=== PATIENT | female | born 1995 | race Caucasian/White ===

== ENCOUNTER 2016-12-20 23:39 | Emergency (ER) | payer OTHER ==
[~2016-12-20] VITALS: Ht 157.5 cm; Wt 66.5 kg
[~2016-12-20 23:39] MED LIST: FAMO-18 PO; HYDR-3498 PO; HYDR15SO8 PO; LANS15TA5 PO; LORA1TAB PO; METO10TA92 PO; ONDA4TAB35 PO; OXYC-284 PO; UDREG PO; UDTYLC PO; ZOF8 PO
[2016-12-20 23:42] VITALS: Ht 157.5 cm; Wt 66.5 kg
[2016-12-21 00:06] LABS: URINE BLOOD (Dip) POC Negative (NEGATIVE)
[2016-12-21] MEDS ORDERED: SOD CHLORIDE 0.9% 1,000 ML IV STA (00:09)
[2016-12-21] MEDS ORDERED: morphine 2 MG INJ IV STA (00:09)
[2016-12-21] MEDS ORDERED: ONDANSETRON 4 MG INJ IV STA ×3 (00:24→02:23)
[2016-12-21 00:31] LABS: ADD SCAN DIFF NO
[2016-12-21 00:34] LABS: BASOPHILS % 0.3 % (0.0-2.0); EOSINOPHILS % 0.2 % (0.0-7.0); HEMATOCRIT 46.4 % (37.0-47.0); HEMOGLOBIN 15.9 g/dl (12.0-16.0); LYMPHOCYTES # 2.7 10^3/ul (0.8-2.9); LYMPHOCYTES % 27.1 % (18.0-55.0); MEAN CORPUSCULAR HGB CONC 34.3 g/dl (32.0-37.0); MEAN CORPUSCULAR VOLUME 90.4 fl (72.0-104.0); MEAN PLATELET VOLUME 10.9 fl (7.4-10.4); MONOCYTE # 0.6 10^3/ul (0.3-0.9); MONOCYTES % 5.8 % (0.0-13.0); NEUTROPHIL # 6.6 10^3/ul (1.6-7.5); NEUTROPHILS % 66.3 % (30.0-74.0); PLATELET COUNT 238 10^3/UL (140-415); RED BLOOD COUNT 5.13 10^6/ul (4.20-5.40); RED CELL DISTRIBUTION WIDTH 14.1 % (11.5-14.5); WHITE BLOOD COUNT 9.9 10^3/ul (4.8-10.8)
[2016-12-21 01:06] LABS: ADD UMIC NO; URINE BILIRUBIN (Dip) 1+ (NEGATIVE); URINE BLOOD (Dip) NEGATIVE (NEGATIVE); URINE COLOR YELLOW (YELLOW); URINE GLUCOSE (Dip) NEGATIVE (NEGATIVE); URINE KETONES (Dip) 3+ (NEGATIVE); URINE LEUKOCYTE ESTERASE (Dip) NEGATIVE (NEGATIVE); URINE NITRITE (Dip) NEGATIVE (NEGATIVE); URINE TOTAL PROTEIN (Dip) NEGATIVE (NEGATIVE); URINE UROBILINOGEN (Dip) 0.2 E.U./dL (0.1-1.0)
[2016-12-21 01:08] LABS: ALBUMIN 4.2 g/dl (3.3-4.9); ALBUMIN/GLOBULIN RATIO 1.23; BILIRUBIN,INDIRECT 0.3 mg/dl (0-1.1); BILIRUBIN,TOTAL 0.3 mg/dl (0.2-1.3); CALCIUM 9.6 mg/dl (8.4-10.2); CREATININE 0.59 mg/dl (0.44-1.00); POTASSIUM 3.7 mmol/L (3.5-5.1); TOTAL PROTEIN 7.6 g/dl (6.1-8.1)
[2016-12-21 01:17] LABS: ICTOTEST NEGATIVE (NEGATIVE)
--- NOTE | 2016-12-21 02:05 | ERA ---
ER Documentation Chief Complaint Date/Time DATE: 12/21/16 TIME: 02:02 Chief Complaint epigastric pain x 1 day HPI 25-year-old female presented with epigastric pain and history of hiatal hernia surgical repair in 2014. Patient states that the current pain feels similar to the pain pre-surgical repair of hiatal hernia. Patient has been able to tolerate p.o. however has had less appetite. Patient also was of nausea without vomiting or diarrhea. Patient has no other complaints at this time. ROS All systems reviewed and are negative except as per history of present illness. Medications Home Meds Active Scripts Polyethylene Glycol* (Miralax*) 17 Gm Powd.pack, 17 GM PO DAILY, #7 Prov:GARTH STAPLETON PA-C 12/21/16 Metoclopramide* (Reglan*) 10 Mg Tablet, 10 MG PO Q6 Y for NAUSEA AND/OR VOMITING , #30 TAB Prov:RADHA PATEL 11/08/15 Metoclopramide* (Reglan*) 10 Mg Tablet, 10 MG PO Q6 Y for NAUSEA AND/OR VOMITING , #10 TAB Prov:RADHA PATEL 10/19/15 Famotidine* (Pepcid*) 20 Mg Tablet, 20 MG PO BID for 15 Days, TAB Prov:RADHA PATEL 10/19/15 Ondansetron Hcl* (Zofran* ODT) 4 mg -ODT Tab.disper, 4 MG PO Q8 Y for NAUSEA AND OR VOMITING, #30 TAB Prov:BERTRAND MAY PROSTHETIC ASSISTANT 10/17/15 Oxycodone Hcl-Acetaminophen* (Percocet*) 10-325 Mg Tablet, 1 TAB PO Q4H Y for PAIN AND OR ELEVATED TEMP, #20 TAB Prov:BERTRAND MAY PROSTHETIC ASSISTANT 10/17/15 Hydrocodone Bit-Acetaminophen* ([place]*) 5-325 Mg Tab, 1 TAB PO Q6 Y for PAIN, # 7 TAB Prov:CORA MÁRQUEZ DO 10/07/15 Ondansetron Hcl* (Zofran* ODT) 4 mg -ODT Tab.disper, 4 MG PO Q6 Y for NAUSEA AND /OR VOMITING, #10 TAB Prov:CORA MÁRQUEZ DO 10/07/15 Lorazepam* (Lorazepam*) 1 Mg Tablet, 1 MG PO Q6, #12 TAB Prov:VALORIE REDMOND MD 06/23/15 Ondansetron Hcl* (Zofran* ODT) 8 mg -ODT Tab.disper, 8 MG PO Q6 Y for NAUSEA AND /OR VOMITING, #12 TAB Prov:VALORIE REDMOND MD 06/23/15 Lansoprazole* (Prevacid* Soltab) 15 Mg Tab, 15 MG PO DAILY for 28 Days, TAB Prov:YOHAN NEGRON MD 06/02/15 Metoclopramide Hcl* (Metoclopramide Hcl* Soln) 5 Mg/5 Ml Solution, 5 MG PO Q6H Y for NAUSEA AND OR VOMITING for 10 Days, ML Prov:YOHAN NEGRON MD 06/02/15 Hydrocodone Bit-Acetaminophen* (Lortab* Liq) 7.5 Mg-500 Mg/15 Ml Solution, 5 ML PO Q4H Y for PAIN for 10 Days, ML Prov:YOHAN NEGRON MD 06/02/15 Acetaminophen-Codeine* (Tylenol-Codeine* Liq) [id number] Elix, 7.5 ML PO Q6H Y for PAIN, #4 OZ Prov:MATHEW NAQVI MD 06/02/15 Allergies Allergies: Coded Allergies: shrimp (Verified Allergy, Unknown, swelling to mouth and throat, 05/30/15) PMhx/Soc History of Surgery: Yes (hiatal hernia repair apr 2015) Anesthesia Reaction: No Hx Neurological Disorder: No Hx Respiratory Disorders: No Hx Cardiac Disorders: No Hx Psychiatric Problems: No Hx Miscellaneous Medical Probl: No Hx Alcohol Use: No Hx Substance Use: No Hx Tobacco Use: No Smoking Status: Never smoker Physical Exam Vitals Vital Signs Date Time Temp Pulse Resp B/P Pulse Ox O2 Delivery O2 Flow Rate FiO2 12/20/16 23:42 98.6 113 20 142/92 98 Physical Exam Const: Well-appearing well-developed, upset 21-year-old female. Head: Atraumatic Eyes: Mild jaundice. No injection. ENT: Normal External Ears, Nose and Mouth. Neck: Full range of motion..~ No meningismus. Resp: High bowel sounds. Clear to auscultation bilaterally Cardio: Regular rate and rhythm, no murmurs Abd: Moderate epigastric tenderness. Soft, non distended. Normal bowel sounds Skin: No petechiae or rashes Back: No midline or flank tenderness Ext: No cyanosis, or edema Neur: Awake and alert Psych: Normal Mood and Affect Result Diagram: 12/21/16 0016 12/21/16 0016 Results 24 hrs Laboratory Tests Test 12/21/16 00:08 12/21/16 00:16 Bedside Urine pH (LAB) 6.0 Bedside Urine Protein (LAB) 1+ Bedside Urine Glucose (UA) Negative Bedside Urine Ketones (LAB) 3+ Bedside Urine Blood Negative Bedside Urine Nitrite (LAB) Negative Bedside Urine Leukocyte Esterase (L Negative White Blood Count 9.910^3/ul Red Blood Count 5.1310^6/ul Hemoglobin 15.9g/dl Hematocrit 46.4% Mean Corpuscular Volume 90.4fl Mean Corpuscular Hemoglobin 31.0pg Mean Corpuscular Hemoglobin Concent 34.3g/dl Red Cell Distribution Width 14.1% Platelet Count 26666^3/UL Mean Platelet Volume 10.9fl Neutrophils % 66.3% Lymphocytes % 27.1% Monocytes % 5.8% Eosinophils % 0.2% Basophils % 0.3% Nucleated Red Blood Cells % 0.0/100WBC Neutrophils # 6.610^3/ul Lymphocytes # 2.710^3/ul Monocytes # 0.610^3/ul Eosinophils # 0.010^3/ul Basophils # 0.010^3/ul Nucleated Red Blood Cells # 0.010^3/ul Urine Color YELLOW Urine Clarity CLEAR Urine pH 6.0 Urine Specific [place] >=1.030 Urine Ketones 3+ Urine Nitrite NEGATIVE Urine Bilirubin 1+ Urine Ictotest NEGATIVE Urine Urobilinogen 0.2 E.U./dL Urine Leukocyte Esterase NEGATIVE Urine Hemoglobin NEGATIVE Urine Glucose NEGATIVE% Urine Total Protein NEGATIVE Sodium Level 138mmol/L Potassium Level 3.7mmol/L Chloride Level 107mmol/L Carbon Dioxide Level 23mmol/L Anion Gap 12 Blood Urea Nitrogen 8mg/dl Creatinine 0.59mg/dl Glucose Level 99mg/dl Calcium Level 9.6mg/dl Total Bilirubin 0.3mg/dl Direct Bilirubin 0.00mg/dl Indirect Bilirubin 0.3mg/dl Aspartate Amino Transf (AST/SGOT) 21IU/L Alanine Aminotransferase (ALT/SGPT) 30IU/L Alkaline Phosphatase 74IU/L Total Protein 7.6g/dl Albumin 4.2g/dl Globulin 3.40g/dl Albumin/Globulin Ratio 1.23 Lipase 21U/L Current Medications Medications (Trade) Dose Ordered Sig/Yamile Route PRN Reason Start Time Stop Time Status Last Admin Dose Admin Sodium Chloride (NS) 1,000 ml @ 1,000 mls/hr Q1H STAT IV 12/21/16 00:09 12/21/16 01:08 DC 12/21/16 00:21 Morphine Sulfate (morphine) 2 mg ONCE STAT IV 12/21/16 00:09 12/21/16 00:12 DC 12/21/16 00:19 Ondansetron HCl (Zofran Inj) 4 mg ONCE STAT IV 12/21/16 00:24 12/21/16 00:25 DC 12/21/16 00:34 Ondansetron HCl (Zofran Inj) 2 mg ONCE STAT IV 12/21/16 02:13 12/21/16 02:15 DC 12/21/16 02:22 Ondansetron HCl (Zofran Inj) 2 mg ONCE STAT IV 12/21/16 02:23 12/21/16 02:24 DC 12/21/16 02:28 Procedures/MDM Patient was evaluated and worked up for epigastric abdominal discomfort. Patient was given morphine and Zofran for discomfort. Patient persisted to feel discomfort however did not want any more pain medication. Workup included labs and urinalysis which were unremarkable and a abdominal chest x-ray which only showed nonspecific air-fluid pattern. The current most likely diagnosis is functional diarrhea due to unspecified ideology. The treatment plan will thus include MiraLAX with close follow-up with primary care provider in the next 1-3 days. Patient has been instructed to return if medication does not work. At this time I do not suspect acute pancreatitis, cholangitis, myocardial/ Intestinal ischemia, pneumonia, hernia, or esophageal rupture. On repeat exam, the abdomen has improved. The patient is well appearing, and tolerates PO. I have spoke with the patient regarding their condition and future management. They have verbally responded that they understand their status and treatment plan. The patients vitals are stable, and their current condition is appropriate for discharge. The patient will be given discharge instructions with return precautions. Departure Diagnosis: Primary Impression: Constipation Qualified Code: K59.00 - Constipation, unspecified constipation type Additional Impression: Abdominal pain Qualified Code: R10.13 - Epigastric pain Condition: Stable Additional Instructions: Follow up with your PCP within the next 1-3 days for a more thorough evaluation and a possible referral to a specialist. Return the the emergency department immediately if symptoms worsen or change. If you have any questions regarding medications, ask your pharmacist or us before you leave. If any adverse reactions occur while taking your medications, discontinue the treatment and return to the emergency department immediately. Take your medications as directed, and complete the entire course of treatment. GARTH STAPLETON PA-C December 21, 2016 02:05
--- NOTE | 2016-12-21 02:51 | RADRPT ---
PROCEDURE: Abdomen x-ray CLINICAL INDICATION: Epigastric pain TECHNIQUE: 3 frontal views of the abdomen. COMPARISON: 10/07/2015 FINDINGS: Nonobstructive and nonspecific bowel gas pattern. Lung bases are clear. No unusual calcifications are identified over the abdomen. IMPRESSION: Nonobstructive nonspecific bowel gas pattern of the abdomen. RPTAT: [facility] Physician Prabhjot Date Time Electronically viewed and signed by Physician Prabhjot on 12/21/2016 02:51 RS/
--- NOTE | 2016-12-21 02:51 | RADRPT ---
PROCEDURE: XR Chest. CLINICAL INDICATION: Bowel sounds near the chest. TECHNIQUE: PA and Lateral views of the chest were obtained. COMPARISON: 01/13/2014. FINDINGS: The cardiomediastinal silhouette is within normal limits. The lungs are clear. No signs of pleural f luid or pneumothorax are seen. The osseous structures and soft tissues are unremarkable. Loops of parveen wel may be located in the left upper quadrant under the left hemidiaphragm. IMPRESSION: No evidence for active cardiopulmonary disease. RPTAT: [facility] Physician Prabhjot Date Time Electronically viewed and signed by Physician Prabhjot on 12/21/2016 02:51 RS/
[2016-12-21] MEDS ORDERED: POLY17PO6 PO (03:13)
[2016-12-21 03:31] VITALS: BP 119/88; PULSE 79; RESP 14; TEMP 98.5
== END 2016-12-21 03:34 | disposition home or self-care (01) ==
LOC: FTE 23:39
DX: K59.00 Constipation, unspecified (principal); R11.0 Nausea
CPT/HCPCS: 71020; 74010; 80053; 81003; 83690; 85025; J2270; J2405; J7030; 36415; 96374; 96375; 96376

== ENCOUNTER 2017-02-13 17:05 | Emergency (ER) | payer OTHER ==
[~2017-02-13] VITALS: Wt 63.2 kg
[~2017-02-13 17:05] MED LIST changes: -FAMO-18 PO; +FAMO-96 PO; +POLY17PO6 PO
[2017-02-13] MEDS ORDERED: CETI10CA PO (17:27)
[2017-02-13] MEDS ORDERED: AMOX1TAB10 PO (17:27)
[2017-02-13] MEDS ORDERED: MICO45CR7 VAGINAL (17:27)
[2017-02-13] MEDS ORDERED: FLUC150T17 PO (17:27)
--- NOTE | 2017-02-13 17:36 | ERD ---
ER Documentation Chief Complaint Date/Time DATE: 02/13/17 TIME: 17:30 Chief Complaint cold symptoms per pt HPI 21 yo female otherwise healthy comes in with cough, runny nose, congestion for 9 days, also comes in with recurring vaginal white discharge with vaginal itching for the past 1 day. She has had a dry cough, no hemoptysis. No fever, shortness of breath, or chest pain. She states that the she has white vaginal discharge and reports itching, she states she tried using monistat and her symptoms improved but returned again. Denies UTI symptoms. ROS All systems reviewed and are negative except as per history of present illness. Medications Home Meds Active Scripts Miconazole Nitrate* (Miconazole-7*) 45 Gm Cream.appl, 1 APPLIC VAGINAL HS, #7 TUB Prov:PRISCILLA POLLOCK PA-C 02/13/17 Fluconazole* (Diflucan*) 150 Mg Tablet, 150 MG PO ONCE, #2 TAB Prov:PRISCILLA POLLOCK PA-C 02/13/17 Cetirizine Hcl* (Zyrtec*) 10 Mg Capsule, 10 MG PO DAILY, #15 TAB.CHEW Prov:PRISCILLA POLLOCK PA-C 02/13/17 Amoxicillin/Potassium Clav (Amox-Clav 875-125 mg Tablet) 875-125 mg Tab, 1 TAB PO BID for 7 Days, #14 TAB Prov:PRISCILLA POLLOCK PA-C 02/13/17 Polyethylene Glycol* (Miralax*) 17 Gm Powd.pack, 17 GM PO DAILY, #7 Prov:GARTH STAPLETON PA-C 12/21/16 Metoclopramide* (Reglan*) 10 Mg Tablet, 10 MG PO Q6 Y for NAUSEA AND/OR VOMITING , #30 TAB Prov:RADHA PATEL 11/08/15 Metoclopramide* (Reglan*) 10 Mg Tablet, 10 MG PO Q6 Y for NAUSEA AND/OR VOMITING , #10 TAB Prov:RADHA PATEL 10/19/15 Famotidine* (Pepcid*) 20 Mg Tablet, 20 MG PO BID for 15 Days, TAB Prov:RADHA PATEL 10/19/15 Ondansetron Hcl* (Zofran* ODT) 4 mg -ODT Tab.disper, 4 MG PO Q8 Y for NAUSEA AND OR VOMITING, #30 TAB Prov:BERTRAND MAY NP 10/17/15 Oxycodone Hcl-Acetaminophen* (Percocet*) 10-325 Mg Tablet, 1 TAB PO Q4H Y for PAIN AND OR ELEVATED TEMP, #20 TAB Prov:BERTRAND MAY INJECTION MACHINE OPERATOR 10/17/15 Hydrocodone Bit-Acetaminophen* ([place]*) 5-325 Mg Tab, 1 TAB PO Q6 Y for PAIN, # 7 TAB Prov:CORA MÁRQUEZ DO 10/07/15 Ondansetron Hcl* (Zofran* ODT) 4 mg -ODT Tab.disper, 4 MG PO Q6 Y for NAUSEA AND /OR VOMITING, #10 TAB Prov:CORA MÁRQUEZ DO 10/07/15 Lorazepam* (Lorazepam*) 1 Mg Tablet, 1 MG PO Q6, #12 TAB Prov:VALORIE REDMOND MD 06/23/15 Ondansetron Hcl* (Zofran* ODT) 8 mg -ODT Tab.disper, 8 MG PO Q6 Y for NAUSEA AND /OR VOMITING, #12 TAB Prov:VALORIE REDMOND MD 06/23/15 Lansoprazole* (Prevacid* Soltab) 15 Mg Tab, 15 MG PO DAILY for 28 Days, TAB Prov:YOHAN NEGRON MD 06/02/15 Metoclopramide Hcl* (Metoclopramide Hcl* Soln) 5 Mg/5 Ml Solution, 5 MG PO Q6H Y for NAUSEA AND OR VOMITING for 10 Days, ML Prov:YOHAN NEGRON MD 06/02/15 Hydrocodone Bit-Acetaminophen* (Lortab* Liq) 7.5 Mg-500 Mg/15 Ml Solution, 5 ML PO Q4H Y for PAIN for 10 Days, ML Prov:YOHAN NEGRON MD 06/02/15 Acetaminophen-Codeine* (Tylenol-Codeine* Liq) [id number] Elix, 7.5 ML PO Q6H Y for PAIN, #4 OZ Prov:MATHEW NAQVI MD 06/02/15 Allergies Allergies: Coded Allergies: shrimp (Verified Allergy, Unknown, swelling to mouth and throat, 05/30/15) PMhx/Soc History of Surgery: Yes (hiatal hernia repair apr 2015) Anesthesia Reaction: No Hx Neurological Disorder: No Hx Respiratory Disorders: No Hx Cardiac Disorders: No Hx Psychiatric Problems: No Hx Miscellaneous Medical Probl: No Hx Alcohol Use: No Hx Substance Use: No Hx Tobacco Use: No Physical Exam Vitals Vital Signs Date Time Temp Pulse Resp B/P Pulse Ox O2 Delivery O2 Flow Rate FiO2 02/13/17 17:16 99.0 99 20 120/73 100 Physical Exam General: Well-developed, well-nourished. The patient appears in no acute distress. HEENT: Head is normocephalic, atraumatic. No scleral icterus. Pupils are equal , round, and reactive. Oral mucous membranes are moist. No pharyngeal erythema. Bilateral frontal sinus pressure, no abscess. no fluctuance. Neck: Supple. Nontender. Lungs: Clear to auscultation. Normal air movement. Heart: Regular rate and rhythm. S1 and S2 are normal. No murmurs, gallops, or rubs. Abdomen: Soft, nontender, nondistended. Bowel sounds are normoactive. Extremities: No clubbing or cyanosis. Normal pulses. Moving extremities x 4. No weakness. Neurologic: Alert and oriented 3. No focal deficits. Skin: Normal turgor. No rash or lesions. Procedures/MDM The patient is a21 yo female who comes in with acute sinusitis, also symptoms of yeast vaginitis. Suspicion for PID, cervicitis, appendicitis, ovarian torsion, and among others is low. She does not complain of any UTI symptoms. He patient has a differential diagnosis of a viral upper respiratory infection, bacterial upper respiratory infection, bronchitis, pneumonia, pharyngitis, laryngitis, epiglottitis, croup, pneumonia. Patient has a normal pulmonary examination, clear breath sounds, normal pulse oximetry, with no corrective measures needed at this time. Fluids, rest, antipyretics were encouraged. Departure Diagnosis: Primary Impression: Vaginitis Additional Impression: Cough Condition: Good Patient Instructions: Sinusitis, Abx Tx, Vaginitis, Maria R Additional Instructions: Call your primary care doctor TOMORROW for an appointment during the next 1-2 days.See the doctor sooner or return here if your condition worsens before your appointment time. PRISCILLA POLLOCK PA-C Feb 13, 2017 17:35
== END 2017-02-13 17:35 | disposition home or self-care (01) ==
LOC: FTE 17:05
DX: N76.0 Acute vaginitis (principal)
CPT/HCPCS: 99284

== ENCOUNTER 2017-03-30 01:11 | Emergency (ER) | payer OTHER ==
[~2017-03-30] VITALS: Ht 144.8 cm; Wt 50.0 kg
[~2017-03-30 01:11] MED LIST changes: +AMOX1TAB10 PO; +CETI10CA PO; +FLUC150T17 PO; +MICO45CR7 VAGINAL
[2017-03-30 01:16] VITALS: Ht 144.8 cm; Wt 50.0 kg
[2017-03-30] MEDS ORDERED: SOD CHLORIDE 0.9% 1,000 ML IV STA (01:31)
[2017-03-30] MEDS ORDERED: morphine 4 MG/ML VIAL IV STA (01:37)
[2017-03-30] MEDS ORDERED: ONDANSETRON 4 MG INJ IV STA ×2 (01:46→03:13)
[2017-03-30] MEDS ORDERED: ONDANSETRON 4 MG INJ ONE (01:47)
[2017-03-30 01:59] LABS: BASOPHIL # 0.1 10^3/ul (0.0-0.1); BASOPHILS % 0.3 % (0.0-2.0); EOSINOPHILS # 0.1 10^3/ul (0.0-0.5); EOSINOPHILS % 0.4 % (0.0-7.0); HEMATOCRIT 41.5 % (37.0-47.0); HEMOGLOBIN 14.3 g/dl (12.0-16.0); LYMPHOCYTES # 2.3 10^3/ul (0.8-2.9); LYMPHOCYTES % 15.9 % (18.0-55.0); MEAN CORPUSCULAR HEMOGLOBIN 32.3 pg (29.0-33.0); MEAN CORPUSCULAR HGB CONC 34.5 g/dl (32.0-37.0); MEAN CORPUSCULAR VOLUME 93.7 fl (72.0-104.0); MEAN PLATELET VOLUME 10.8 fl (7.4-10.4); MONOCYTE # 0.9 10^3/ul (0.3-0.9); MONOCYTES % 6.1 % (0.0-13.0); PLATELET COUNT 226 10^3/UL (140-415); RED BLOOD COUNT 4.43 10^6/ul (4.20-5.40); RED CELL DISTRIBUTION WIDTH 12.7 % (11.5-14.5); WHITE BLOOD COUNT 14.5 10^3/ul (4.8-10.8)
[2017-03-30] MEDS ORDERED: HYDROmorphONE 1 MG/ML SYG IV STA (02:18)
[2017-03-30] MEDS ORDERED: HYDROmorphONE 1 MG/ML SYG ONE (02:20)
[2017-03-30 02:30] LABS: ADD UMIC YES; UR ASCORBIC ACID NEGATIVE (NEGATIVE); UR BACTERIA FEW /HPF (NONE SEEN); UR BILIRUBIN (Dip) NEGATIVE (NEGATIVE); UR BLOOD (Dip) 1+ mg/dL (NEGATIVE); UR CLARITY SLIGHTLY CLOUDY (CLEAR); UR COLOR YELLOW (YELLOW); UR GLUCOSE (Dip) NEGATIVE (NEGATIVE); UR KETONES (Dip) 1+ mg/dL (NEGATIVE); UR LEUKOCYTE ESTERASE (Dip) 3+ Leu/ul (NEGATIVE); UR MUCUS FEW /HPF (NONE SEEN); UR NITRITE (Dip) NEGATIVE (NEGATIVE); UR RBC 3 /HPF (0-5); UR SQUAMOUS EPITHELIAL CELL MODERATE /HPF (FEW); UR TOTAL PROTEIN (Dip) 1+ mg/dl (NEGATIVE); UR UROBILINOGEN (Dip) 1+ mg/dL (NEGATIVE)
[2017-03-30 02:38] LABS: ALBUMIN 3.9 g/dl (3.3-4.9); ALBUMIN/GLOBULIN RATIO 1.3; BILIRUBIN,INDIRECT 0.3 mg/dl (0-1.1); BILIRUBIN,TOTAL 0.3 mg/dl (0.2-1.3); CALCIUM 9.1 mg/dl (8.4-10.2); CREATININE 0.59 mg/dl (0.44-1.00); POTASSIUM 3.7 mmol/L (3.5-5.1); TOTAL PROTEIN 6.9 g/dl (6.1-8.1)
[2017-03-30] MEDS ORDERED: METOCLOPRAMIDE 10 MG INJ IV ONE (03:30)
--- NOTE | 2017-03-30 03:46 | RADRPT ---
PROCEDURE: ULTRASOUND PELVIS CLINICAL INDICATION: 21-year-old female with pelvic pain. TECHNIQUE: Multiple sonographic images of the pelvis were obtained utilizing a transabdominal and endovaginal technique. The images were reviewed on a PACS workstation. COMPARISON: None. FINDINGS: The uterus is visualized and measures 6.5 x 3.8 x 4.5 cm. The endometrial echo complex is within nor mal limits and measures 10.7 mm. There is a linear echogenic focus with shadowing within the endomet rial canal. There is no evidence for free fluid. The right ovary was not visualized. The left ovary has a normal echotexture and measures 4.9 x 2.4 x 3.0 cm. There is flow identified within the left ovary. There is a left complex ovarian cyst measuring approximately 2.4 x 2.3 x 1.8 cm. No adnexal masses are noted. IMPRESSION: 1. Complex left ovarian cyst. 2. Nonvisualization of the right ovary. 3. Linear echogenic focus within the endometrial canal which shadowing suggestive of an intrauterin e device. Clinical correlation is necessary. .Mayco Louie MD, Date Time Electronically viewed and signed by .Mayco Louie MD, on 03/30/2017 03:46 .M/
[2017-03-30] MEDS ORDERED: CEFTRIAXONE 1 GM/50 ML (PMX) 50 ML IVPB ONE ×2 (04:00→04:06)
[2017-03-30] MEDS ORDERED: CIPR500T4 PO (05:16)
[2017-03-30] MEDS ORDERED: ONDA4TAB11 PO (05:17)
[2017-03-30] MEDS ORDERED: NAPR-260 PO (05:17)
[2017-03-30 05:19] VITALS: BP 122/87; PULSE 66; RESP 16; TEMP 98.9
--- NOTE | 2017-03-30 05:30 | ERD ---
ER Documentation Chief Complaint Date/Time DATE: 03/30/17 TIME: 05:18 Chief Complaint LRQ AP x this evening HPI This 21-year-old female comes in the emergency room for left lower quadrant abdominal pain and suprapubic pain started tonight. This is similar pain when she had an ovarian cyst. She has nausea has vomited twice. ROS All systems reviewed and are negative except as per history of present illness. Medications Home Meds Active Scripts Ondansetron (Zofran Odt) 4 Mg Tab.rapdis, 4 MG PO Q6, #10 Prov:APRYL JAMES DO 03/30/17 Naproxen* (Naprosyn*) 500 Mg Tablet, 500 MG PO BID Y for PAIN AND/OR INFLAMMATION, #30 TAB Prov:APRYL JAMES DO 03/30/17 Ciprofloxacin Hcl* (Ciprofloxacin Hcl*) 500 Mg Tablet, 500 MG PO BID for 3 Days , TAB Prov:APRYL JAMES DO 03/30/17 Miconazole Nitrate* (Miconazole-7*) 45 Gm Cream.appl, 1 APPLIC VAGINAL HS, #7 TUB Prov:PRISCILLA POLLOCK PA-C 02/13/17 Fluconazole* (Diflucan*) 150 Mg Tablet, 150 MG PO ONCE, #2 TAB Prov:PRISCILLA POLLOCK PA-C 02/13/17 Cetirizine Hcl* (Zyrtec*) 10 Mg Capsule, 10 MG PO DAILY, #15 TAB.CHEW Prov:PRISCILLA POLLOCK PA-C 02/13/17 Amoxicillin/Potassium Clav (Amox-Clav 875-125 mg Tablet) 875-125 mg Tab, 1 TAB PO BID for 7 Days, #14 TAB Prov:PRISCILLA POLLOCK PA-C 02/13/17 Polyethylene Glycol* (Miralax*) 17 Gm Powd.pack, 17 GM PO DAILY, #7 Prov:GARTH STAPLETON PA-C 12/21/16 Metoclopramide* (Reglan*) 10 Mg Tablet, 10 MG PO Q6 Y for NAUSEA AND/OR VOMITING , #30 TAB Prov:RADHA PATEL 11/08/15 Metoclopramide* (Reglan*) 10 Mg Tablet, 10 MG PO Q6 Y for NAUSEA AND/OR VOMITING , #10 TAB Prov:RADHA PATEL 10/19/15 Famotidine* (Pepcid*) 20 Mg Tablet, 20 MG PO BID for 15 Days, TAB Prov:RADHA PATEL 10/19/15 Ondansetron Hcl* (Zofran* ODT) 4 mg -ODT Tab.disper, 4 MG PO Q8 Y for NAUSEA AND OR VOMITING, #30 TAB Prov:BERTRAND MAY PHOTOTYPESETTING EQUIPMENT MONITOR 10/17/15 Oxycodone Hcl-Acetaminophen* (Percocet*) 10-325 Mg Tablet, 1 TAB PO Q4H Y for PAIN AND OR ELEVATED TEMP, #20 TAB Prov:BERTRAND MAY PHOTOTYPESETTING EQUIPMENT MONITOR 10/17/15 Hydrocodone Bit-Acetaminophen* ([place]*) 5-325 Mg Tab, 1 TAB PO Q6 Y for PAIN, # 7 TAB Prov:CORA MÁRQUEZ DO 10/07/15 Ondansetron Hcl* (Zofran* ODT) 4 mg -ODT Tab.disper, 4 MG PO Q6 Y for NAUSEA AND /OR VOMITING, #10 TAB Prov:CORA MÁRQUEZ DO 10/07/15 Lorazepam* (Lorazepam*) 1 Mg Tablet, 1 MG PO Q6, #12 TAB Prov:VALORIE REDMOND MD 06/23/15 Ondansetron Hcl* (Zofran* ODT) 8 mg -ODT Tab.disper, 8 MG PO Q6 Y for NAUSEA AND /OR VOMITING, #12 TAB Prov:VALORIE REDMOND MD 06/23/15 Lansoprazole* (Prevacid* Soltab) 15 Mg Tab, 15 MG PO DAILY for 28 Days, TAB Prov:YOHAN NEGRON MD 06/02/15 Metoclopramide Hcl* (Metoclopramide Hcl* Soln) 5 Mg/5 Ml Solution, 5 MG PO Q6H Y for NAUSEA AND OR VOMITING for 10 Days, ML Prov:YOHAN NEGRON MD 06/02/15 Hydrocodone Bit-Acetaminophen* (Lortab* Liq) 7.5 Mg-500 Mg/15 Ml Solution, 5 ML PO Q4H Y for PAIN for 10 Days, ML Prov:YOHAN NEGRON MD 06/02/15 Acetaminophen-Codeine* (Tylenol-Codeine* Liq) [id number] Elix, 7.5 ML PO Q6H Y for PAIN, #4 OZ Prov:MATHEW NAQVI MD 06/02/15 Allergies Allergies: Coded Allergies: shrimp (Verified Allergy, Unknown, swelling to mouth and throat, 05/30/15) PMhx/Soc Medical and Surgical Hx: pt denies Medical Hx History of Surgery: Yes (hiatal hernia repair apr 2015) Anesthesia Reaction: No Hx Neurological Disorder: No Hx Respiratory Disorders: No Hx Cardiac Disorders: No Hx Psychiatric Problems: No Hx Miscellaneous Medical Probl: No Hx Alcohol Use: No Hx Substance Use: Yes (marijuana) Hx Tobacco Use: No Smoking Status: Never smoker Physical Exam Vitals Vital Signs Date Time Temp Pulse Resp B/P Pulse Ox O2 Delivery O2 Flow Rate FiO2 03/30/17 01:16 98.7 99 20 113/80 100 Physical Exam Const: [] Moderate distress Head: Atraumatic Eyes: Normal Conjunctiva ENT: Normal External Ears, Nose and Mouth. Neck: Full range of motion..~ No meningismus. Resp: Clear to auscultation bilaterally Cardio: Regular Tachycardia, no murmurs Abd: Soft, Mild suprapubic and left pelvic tenderness without guarding or rebound, non distended. Normal bowel sounds Skin: No petechiae or rashes Back: No midline or flank tenderness Ext: No cyanosis, or edema Neur: Awake and alert and oriented x 3 Psych: Normal Mood and Affect Result Diagram: 03/30/1714803/30/17148 Results 24 hrs Laboratory Tests Test 03/30/17 01:49 White Blood Count 14.510^3/ul Red Blood Count 4.4310^6/ul Hemoglobin 14.3g/dl Hematocrit 41.5% Mean Corpuscular Volume 93.7fl Mean Corpuscular Hemoglobin 32.3pg Mean Corpuscular Hemoglobin Concent 34.5g/dl Red Cell Distribution Width 12.7% Platelet Count 50346^3/UL Mean Platelet Volume 10.8fl Neutrophils % 77.0% Lymphocytes % 15.9% Monocytes % 6.1% Eosinophils % 0.4% Basophils % 0.3% Nucleated Red Blood Cells % 0.0/100WBC Neutrophils # (Manual) 11.210^3/ul Lymphocytes # 2.310^3/ul Monocytes # 0.910^3/ul Eosinophils # 0.110^3/ul Basophils # 0.110^3/ul Nucleated Red Blood Cells # 0.010^3/ul Urine Color YELLOW Urine Clarity SLIGHTLY CLOUDY Urine pH 5.0 Urine Specific [place] 1.030 Urine Ketones 1+mg/dL Urine Nitrite NEGATIVEmg/dL Urine Bilirubin NEGATIVEmg/dL Urine Urobilinogen 1+mg/dL Urine Leukocyte Esterase 3+Kath/ul Urine Microscopic RBC 3/HPF Urine Microscopic WBC 31/HPF Urine Squamous Epithelial Cells MODERATE/HPF Urine Bacteria FEW/HPF Urine Mucus FEW/HPF Urine Hemoglobin 1+mg/dL Urine Glucose NEGATIVEmg/dL Urine Total Protein 1+mg/dl Sodium Level 138mmol/L Potassium Level 3.7mmol/L Chloride Level 106mmol/L Carbon Dioxide Level 24mmol/L Anion Gap 12 Blood Urea Nitrogen 15mg/dl Creatinine 0.59mg/dl Glucose Level 84mg/dl Calcium Level 9.1mg/dl Total Bilirubin 0.3mg/dl Direct Bilirubin 0.00mg/dl Indirect Bilirubin 0.3mg/dl Aspartate Amino Transf (AST/SGOT) 24IU/L Alanine Aminotransferase (ALT/SGPT) 27IU/L Alkaline Phosphatase 69IU/L Total Protein 6.9g/dl Albumin 3.9g/dl Globulin 3.00g/dl Albumin/Globulin Ratio 1.30 Lipase 36U/L Current Medications Medications (Trade) Dose Ordered Sig/Yamile Route PRN Reason Start Time Stop Time Status Last Admin Dose Admin Sodium Chloride (NS) 1,000 ml @ 1,000 mls/hr Q1H STAT IV 03/30/17 01:31 03/30/17 02:30 DC 03/30/17 01:45 Morphine Sulfate (morphine) 4 mg ONCE STAT IV 03/30/17 01:37 03/30/17 01:38 DC 03/30/17 01:45 Ondansetron HCl (Zofran Inj) 4 mg STK-MED ONCE .ROUTE 03/30/17 01:47 03/30/17 01:48 DC Ondansetron HCl (Zofran Inj) 4 mg ONCE STAT IV 03/30/17 01:46 03/30/17 01:49 DC 03/30/17 01:51 Hydromorphone HCl (Dilaudid) 1 mg ONCE STAT IV 03/30/17 02:18 03/30/17 02:19 DC 03/30/17 02:23 Hydromorphone HCl (Dilaudid) 1 mg STK-MED ONCE .ROUTE 03/30/17 02:20 03/30/17 02:21 DC Ondansetron HCl (Zofran Inj) 4 mg ONCE STAT IV 03/30/17 03:13 03/30/17 03:14 DC 03/30/17 03:23 Metoclopramide HCl 10 mg 10 mg ONCE ONCE IV 03/30/17 03:30 03/30/17 03:31 DC 03/30/17 03:23 Ceftriaxone Sodium 50 ml @ 100 mls/hr ONCE ONCE IVPB 03/30/17 04:00 03/30/17 04:29 DC 03/30/17 04:12 Ceftriaxone Sodium (Rocephin) 50 ml @ ud STK-MED ONCE IVPB 03/30/17 04:06 03/30/17 04:07 DC Procedures/MDM UTI and complex ovarian cyst. Patient is very uncomfortable on arrival. She was given 4 mg of morphine 30 mg of Toradol Zofran and eventually Reglan. After these medications and a liter of normal saline all of her symptoms were much improved. She had a benign abdominal examination. She was also given a gram of Rocephin in the emergency room. We will discharge her with Cipro 3 days as well as naproxen and Zofran. Primary care follow-up and return precautions. Gynecology follow-up as well. Pelvic ultrasound interpretation: Complex ovarian cyst without any signs of acute process, no signs of cyst rupture, good ovarian flow no signs of torsion Departure Diagnosis: Primary Impression: UTI (urinary tract infection) Additional Impression: Ovarian cyst Condition: Stable Patient Instructions: Understanding Urinary Tract Infections (UTIs) Additional Instructions: Call your primary care doctor TOMORROW for an appointment during the next 2-3 days.See the doctor sooner or return here if your condition worsens before your appointment time. APRYL JAMES DO Mar 30, 2017 05:30
== END 2017-03-30 05:26 | disposition home or self-care (01) ==
LOC: E/R 01:11
DX: N39.0 Urinary tract infection, site not specified (principal); N83.202 Unspecified ovarian cyst, left side; R11.2 Nausea with vomiting, unspecified; R10.2 Pelvic and perineal pain
CPT/HCPCS: 36415; 76830; 76856; 80053; 81001; 83690; 85025; 87086; 96374; 96375; 96376; J0696; J1170; J2270; J2405; J2765; J7030; Z7502

== ENCOUNTER 2017-04-26 02:19 | Emergency (ER) | payer OTHER ==
[~2017-04-26] VITALS: Ht 157.5 cm; Wt 55.0 kg
[~2017-04-26 02:19] MED LIST changes: +CIPR500T4 PO; +NAPR-260 PO; +ONDA4TAB11 PO
[2017-04-26 02:22] VITALS: Ht 157.5 cm; Wt 55.0 kg
[2017-04-26] MEDS ORDERED: HYDROCODONE/APAP (10/325) TAB PO ONE (03:00)
[2017-04-26 03:45] LABS: ADD UMIC YES; UR ASCORBIC ACID NEGATIVE (NEGATIVE); UR BILIRUBIN (Dip) NEGATIVE (NEGATIVE); UR BLOOD (Dip) NEGATIVE (NEGATIVE); UR CLARITY SLIGHTLY CLOUDY (CLEAR); UR COLOR YELLOW (YELLOW); UR GLUCOSE (Dip) NEGATIVE (NEGATIVE); UR KETONES (Dip) TRACE mg/dL (NEGATIVE); UR LEUKOCYTE ESTERASE (Dip) 1+ Leu/ul (NEGATIVE); UR MUCUS FEW /HPF (NONE SEEN); UR NITRITE (Dip) NEGATIVE (NEGATIVE); UR RBC 6 /HPF (0-5); UR SPECIFIC GRAVITY (Dip) 1.021 (1.003-1.030); UR SQUAMOUS EPITHELIAL CELL FEW /HPF (FEW); UR TOTAL PROTEIN (Dip) NEGATIVE (NEGATIVE); UR TRANSITIONAL EPI CELL FEW /HPF (NONE SEEN); UR UROBILINOGEN (Dip) 2+ mg/dL (NEGATIVE)
[2017-04-26] MEDS ORDERED: CEPH-443 PO (04:09)
[2017-04-26] MEDS ORDERED: PHEN-538 PO (04:09)
--- NOTE | 2017-04-26 04:14 | ERD ---
ER Documentation Chief Complaint Date/Time DATE: 04/26/17 TIME: 04:10 Chief Complaint pelvic pain x 2 days HPI Patient is a 21-year-old female who presents with bilateral pelvic pain worse on the left side she has had for 2 days. She admits to a cramping pain. Denies any fever. Denies any nausea or vomiting. She denies possibility of . She admits to dysuria hematuria and increased urinary frequency. She has known history of ovarian cyst on the left. ROS All systems reviewed and are negative except as per history of present illness. Medications Home Meds Active Scripts Phenazopyridine Hcl* (Pyridium*) 200 Mg Tab, 200 MG PO TID Y for URINARY PAIN, # 6 TAB Prov:BONITA MOHR PA-C 04/26/17 Cephalexin* (Keflex*) 500 Mg Capsule, 500 MG PO BID for 7 Days, CAP Prov:BONITA MOHR PA-C 04/26/17 Ondansetron (Zofran Odt) 4 Mg Tab.rapdis, 4 MG PO Q6, #10 Prov:ERIKAAPRYL DO 03/30/17 Naproxen* (Naprosyn*) 500 Mg Tablet, 500 MG PO BID Y for PAIN AND/OR INFLAMMATION, #30 TAB Prov:APRYL JAMES DO 03/30/17 Ciprofloxacin Hcl* (Ciprofloxacin Hcl*) 500 Mg Tablet, 500 MG PO BID for 3 Days , TAB Prov:ERIKAAPRYL DO 03/30/17 Miconazole Nitrate* (Miconazole-7*) 45 Gm Cream.appl, 1 APPLIC VAGINAL HS, #7 TUB Prov:PRISCILLA POLLOCK PA-C 02/13/17 Fluconazole* (Diflucan*) 150 Mg Tablet, 150 MG PO ONCE, #2 TAB Prov:PRISCILLA POLLOCK PA-C 02/13/17 Cetirizine Hcl* (Zyrtec*) 10 Mg Capsule, 10 MG PO DAILY, #15 TAB.CHEW Prov:PRISCILLA POLLOCK PA-C 02/13/17 Amoxicillin/Potassium Clav (Amox-Clav 875-125 mg Tablet) 875-125 mg Tab, 1 TAB PO BID for 7 Days, #14 TAB Prov:PRISCILLA POLLOCK PA-C 02/13/17 Polyethylene Glycol* (Miralax*) 17 Gm Powd.pack, 17 GM PO DAILY, #7 Prov:GARTH STAPLETON PA-C 12/21/16 Metoclopramide* (Reglan*) 10 Mg Tablet, 10 MG PO Q6 Y for NAUSEA AND/OR VOMITING , #30 TAB Prov:AMANDA,RADHA Wills 11/08/15 Metoclopramide* (Reglan*) 10 Mg Tablet, 10 MG PO Q6 Y for NAUSEA AND/OR VOMITING , #10 TAB Prov:AMANDA,RADHA C 10/19/15 Famotidine* (Pepcid*) 20 Mg Tablet, 20 MG PO BID for 15 Days, TAB Prov:RADHA PATEL 10/19/15 Ondansetron Hcl* (Zofran* ODT) 4 mg -ODT Tab.disper, 4 MG PO Q8 Y for NAUSEA AND OR VOMITING, #30 TAB Prov:BERTRAND MAY NP 10/17/15 Oxycodone Hcl-Acetaminophen* (Percocet*) 10-325 Mg Tablet, 1 TAB PO Q4H Y for PAIN AND OR ELEVATED TEMP, #20 TAB Prov:BERTRAND MAY NP 10/17/15 Hydrocodone Bit-Acetaminophen* (Fortuna*) 5-325 Mg Tab, 1 TAB PO Q6 Y for PAIN, # 7 TAB Prov:CORA MÁRQUEZ DO 10/07/15 Ondansetron Hcl* (Zofran* ODT) 4 mg -ODT Tab.disper, 4 MG PO Q6 Y for NAUSEA AND /OR VOMITING, #10 TAB Prov:CORA MÁRQUEZ DO 10/07/15 Lorazepam* (Lorazepam*) 1 Mg Tablet, 1 MG PO Q6, #12 TAB Prov:VALORIE REDMOND MD 06/23/15 Ondansetron Hcl* (Zofran* ODT) 8 mg -ODT Tab.disper, 8 MG PO Q6 Y for NAUSEA AND /OR VOMITING, #12 TAB Prov:VALORIE REDMOND MD 06/23/15 Lansoprazole* (Prevacid* Soltab) 15 Mg Tab, 15 MG PO DAILY for 28 Days, TAB Prov:YOHAN NEGRON MD 06/02/15 Metoclopramide Hcl* (Metoclopramide Hcl* Soln) 5 Mg/5 Ml Solution, 5 MG PO Q6H Y for NAUSEA AND OR VOMITING for 10 Days, ML Prov:YOHAN NEGRON MD 06/02/15 Hydrocodone Bit-Acetaminophen* (Lortab* Liq) 7.5 Mg-500 Mg/15 Ml Solution, 5 ML PO Q4H Y for PAIN for 10 Days, ML Prov:YOHAN NEGRON MD 06/02/15 Acetaminophen-Codeine* (Tylenol-Codeine* Liq) [id number] Elix, 7.5 ML PO Q6H Y for PAIN, #4 OZ Prov:MATHEW NAQVI MD 06/02/15 Allergies Allergies: Coded Allergies: shrimp (Verified Allergy, Unknown, swelling to mouth and throat, 05/30/15) PMhx/Soc Medical and Surgical Hx: pt denies Medical Hx History of Surgery: Yes (hiatal hernia repair apr 2015) Anesthesia Reaction: No Hx Neurological Disorder: No Hx Respiratory Disorders: No Hx Cardiac Disorders: No Hx Psychiatric Problems: No Hx Miscellaneous Medical Probl: No Hx Alcohol Use: No Hx Substance Use: Yes (marijuana) Hx Tobacco Use: No Smoking Status: Former smoker FmHx Family History: No diabetes Physical Exam Vitals Vital Signs Date Time Temp Pulse Resp B/P Pulse Ox O2 Delivery O2 Flow Rate FiO2 04/26/17 02:22 98.3 98 20 107/68 98 Physical Exam INITIAL VITAL SIGNS: Reviewed by me GENERAL: Awake, alert and oriented x 4, well appearing, nontoxic, speaking in full sentences. Mild distress secondary to pain HEAD: Atraumatic NECK: Supple. No masses. Full range of motion. No meningismus. No midline tenderness. RESPIRATORY: Clear to auscultation bilaterally. Symmetric chest wall rise. No wheezing or rales. No accessory muscle use. CV: Regular rate and rhythm. No murmurs, rubs, or gallops. ABDOMEN: Soft, non-distended. Nontender. Negative [place]. Negative [place] point tenderness. No CVA tenderness bilaterally. No guarding. No rebound. : Deffered. Results 24 hrs Laboratory Tests Test 04/26/17 03:00 Urine Color YELLOW Urine Clarity SLIGHTLY CLOUDY Urine pH 6.0 Urine Specific [place] 1.021 Urine Ketones TRACEmg/dL Urine Nitrite NEGATIVEmg/dL Urine Bilirubin NEGATIVEmg/dL Urine Urobilinogen 2+mg/dL Urine Leukocyte Esterase 1+Kath/ul Urine Microscopic RBC 6/HPF Urine Microscopic WBC 55/HPF Urine Squamous Epithelial Cells FEW/HPF Urine Transitional Epithelial Cells FEW/HPF Urine Mucus FEW/HPF Urine Hemoglobin NEGATIVEmg/dL Urine Glucose NEGATIVEmg/dL Urine Total Protein NEGATIVEmg/dl Current Medications Medications (Trade) Dose Ordered Sig/Yamile Route PRN Reason Start Time Stop Time Status Last Admin Dose Admin Acetaminophen/ Hydrocodone Bitart (Fortuna (10/467)) 1 tab ONCE ONCE PO 04/26/17 03:00 04/26/17 03:01 DC 04/26/17 03:00 Procedures/MDM Patient presents with pelvic pain. Patients is alert, oriented, well appearing , and in no distress with normal vital signs. There is no fever, tachycardia, or tachypnea. The differential diagnosis includes but is not limited to appendicitis, cholelithiasis, cholecystitis, pancreatitis, hepatitis, gastritis , peptic ulcer disease, bowel obstruction, diverticulitis, renal disease including stones, torsion, AAA, pyelonephritis, and others. I doubt appendicitis urine does show evidence of infection. She is not . Ultrasound shows no evidence of torsion. Patient discharged with Keflex and Pyridium. Patient counseled regarding my diagnostic impression and care plan. Prior to discharge all questions answered. Pt agrees with treatment plan and understands strict return precautions. Pt is instructed to follow up with primary care provider within 24-48 hours. Precautionary instructions provided including instructions to return to the ER if not improving or for any worsening or changing symptoms or concerns. Departure Diagnosis: Primary Impression: Cystitis Additional Impression: Ovarian cyst Condition: Stable Patient Instructions: Cystitis Additional Instructions: Call your primary care doctor TOMORROW for an appointment during the next 1-2 days.See the doctor sooner or return here if your condition worsens before your appointment time. BONITA MOHR PA-C Apr 26, 2017 04:14
--- NOTE | 2017-04-26 04:22 | RADRPT ---
PROCEDURE: Pelvic ultrasound, limited. CLINICAL INDICATION: Pelvic pain. TECHNIQUE: Multiple sonographic images of the pelvis were obtained utilizing a transabdominal shyla hnique. The images were reviewed on a PACS workstation. COMPARISON: 03/30/2017. FINDINGS: The uterus is visualized and measures 5.8 x 3.2 x 4.5 cm. No abnormal uterine mass is identified. T he endometrial echo complex is homogeneous and measures 6.9 mm. There is a linear echogenicity withi n the endometrium suggestive of an intrauterine device. There is no evidence for free fluid. The right ovary has a normal echotexture and measures 2.7 x 1. 5 x 1.7 cm. The left ovary has a normal echotexture and measures 4.0 x 1.9 x 3.1 cm. There is norm al flow to both ovaries. There is a complex hypoechoic cyst within the left ovary measuring 2.4 x 1 .8 x 1.6 cm. No adnexal masses are identified. IMPRESSION: Left ovarian 2.4 cm complex cyst, unchanged from 03/30/2017. Linear echogenic structure within the endometrium suggestive of an intrauterine device. Clinically c orrelate. .Juvencio Bonds MD, Date Time Electronically viewed and signed by .Juvencio Bonds MD, on 04/26/2017 04:21 .T/
[2017-04-26 04:25] VITALS: BP 110/68; PULSE 66; RESP 20
== END 2017-04-26 04:26 | disposition home or self-care (01) ==
LOC: FTE 02:19
DX: N30.90 Cystitis, unspecified without hematuria (principal); N83.202 Unspecified ovarian cyst, left side
CPT/HCPCS: 76856; 81001; Z7502; Z7610

== ENCOUNTER 2017-05-27 22:12 | Emergency (ER) | payer OTHER ==
[~2017-05-27] VITALS: Ht 152.4 cm; Wt 51.7 kg
[~2017-05-27 22:12] MED LIST changes: +CEPH-443 PO; +PHEN-538 PO
[2017-05-27 22:25] VITALS: Ht 152.4 cm; Wt 51.7 kg
[2017-05-27] MEDS ORDERED: LORAZEPAM 2 MG INJ IM STA (22:46)
--- NOTE | 2017-05-27 22:55 | ERD ---
ER Documentation Chief Complaint Chief Complaint anxiety today denies si/ hi, vomiting HPI This is a 21-year-old female presenting to the emergency department complaining of an anxiety attack. Patient states that she has been having anxiety attacks for the past year and was placed on Prozac. Patient states that she has been taking it continuously but has stopped 2 weeks prior to being seen. Patient states that when she takes it she gets anxiety therefore she does not take any more. Patient states that she is in process of changing her primary care physician. Patient has not tried any other medications for her anxiety.. Denies any chest pain shortness of breath ROS All systems reviewed and are negative except as per history of present illness. Medications Home Meds Active Scripts Phenazopyridine Hcl* (Pyridium*) 200 Mg Tab, 200 MG PO TID Y for URINARY PAIN, # 6 TAB Prov:BONITA MOHR PA-C 04/26/17 Cephalexin* (Keflex*) 500 Mg Capsule, 500 MG PO BID for 7 Days, CAP Prov:BONITA MOHR PA-C 04/26/17 Ondansetron (Zofran Odt) 4 Mg Tab.rapdis, 4 MG PO Q6, #10 Prov:APRYL JAMES DO 03/30/17 Naproxen* (Naprosyn*) 500 Mg Tablet, 500 MG PO BID Y for PAIN AND/OR INFLAMMATION, #30 TAB Prov:APRYL JAMES DO 03/30/17 Ciprofloxacin Hcl* (Ciprofloxacin Hcl*) 500 Mg Tablet, 500 MG PO BID for 3 Days , TAB Prov:APRYL JAMES DO 03/30/17 Miconazole Nitrate* (Miconazole-7*) 45 Gm Cream.appl, 1 APPLIC VAGINAL HS, #7 TUB Prov:PRISCILLA POLLOCK PA-C 02/13/17 Fluconazole* (Diflucan*) 150 Mg Tablet, 150 MG PO ONCE, #2 TAB Prov:PRISCILLA POLLOCK PA-C 02/13/17 Cetirizine Hcl* (Zyrtec*) 10 Mg Capsule, 10 MG PO DAILY, #15 TAB.CHEW Prov:PRISCILLA POLLOCK PA-C 02/13/17 Amoxicillin/Potassium Clav (Amox-Clav 875-125 mg Tablet) 875-125 mg Tab, 1 TAB PO BID for 7 Days, #14 TAB Prov:PRISCILLA POLLOCK PA-C 02/13/17 Polyethylene Glycol* (Miralax*) 17 Gm Powd.pack, 17 GM PO DAILY, #7 Prov:GARTH STAPLETON PA-C 12/21/16 Metoclopramide* (Reglan*) 10 Mg Tablet, 10 MG PO Q6 Y for NAUSEA AND/OR VOMITING , #30 TAB Prov:RADHA PATEL 11/08/15 Metoclopramide* (Reglan*) 10 Mg Tablet, 10 MG PO Q6 Y for NAUSEA AND/OR VOMITING , #10 TAB Prov:RADHA PATEL 10/19/15 Famotidine* (Pepcid*) 20 Mg Tablet, 20 MG PO BID for 15 Days, TAB Prov:RADHA PATEL 10/19/15 Ondansetron Hcl* (Zofran* ODT) 4 mg -ODT Tab.disper, 4 MG PO Q8 Y for NAUSEA AND OR VOMITING, #30 TAB Prov:BERTRAND MAY NP 10/17/15 Oxycodone Hcl-Acetaminophen* (Percocet*) 10-325 Mg Tablet, 1 TAB PO Q4H Y for PAIN AND OR ELEVATED TEMP, #20 TAB Prov:BERTRAND MAY INTENSIVIST 10/17/15 Hydrocodone Bit-Acetaminophen* ([place]*) 5-325 Mg Tab, 1 TAB PO Q6 Y for PAIN, # 7 TAB Prov:CORA MÁRQUEZ DO 10/07/15 Ondansetron Hcl* (Zofran* ODT) 4 mg -ODT Tab.disper, 4 MG PO Q6 Y for NAUSEA AND /OR VOMITING, #10 TAB Prov:CORA MÁRQUEZ DO 10/07/15 Lorazepam* (Lorazepam*) 1 Mg Tablet, 1 MG PO Q6, #12 TAB Prov:VALORIE REDMOND MD 06/23/15 Ondansetron Hcl* (Zofran* ODT) 8 mg -ODT Tab.disper, 8 MG PO Q6 Y for NAUSEA AND /OR VOMITING, #12 TAB Prov:VALORIE REDMOND MD 06/23/15 Lansoprazole* (Prevacid* Soltab) 15 Mg Tab, 15 MG PO DAILY for 28 Days, TAB Prov:YOHAN NEGRON MD 06/02/15 Metoclopramide Hcl* (Metoclopramide Hcl* Soln) 5 Mg/5 Ml Solution, 5 MG PO Q6H Y for NAUSEA AND OR VOMITING for 10 Days, ML Prov:YOHAN NEGRON MD 06/02/15 Hydrocodone Bit-Acetaminophen* (Lortab* Liq) 7.5 Mg-500 Mg/15 Ml Solution, 5 ML PO Q4H Y for PAIN for 10 Days, ML Prov:YOHAN NEGRON MD 06/02/15 Acetaminophen-Codeine* (Tylenol-Codeine* Liq) [id number] Elix, 7.5 ML PO Q6H Y for PAIN, #4 OZ Prov:MATHEW NAQVI MD 06/02/15 Allergies Allergies: Coded Allergies: shrimp (Verified Allergy, Unknown, swelling to mouth and throat, 05/27/17) PMhx/Soc History of Surgery: Yes (hiatal hernia repair apr 2015) Anesthesia Reaction: No Hx Neurological Disorder: No Hx Respiratory Disorders: No Hx Cardiac Disorders: No Hx Psychiatric Problems: No Hx Miscellaneous Medical Probl: Yes (anxiety, depression) Hx Alcohol Use: No Hx Substance Use: Yes (marijuana) Hx Tobacco Use: No Physical Exam Vitals Vital Signs Date Time Temp Pulse Resp B/P Pulse Ox O2 Delivery O2 Flow Rate FiO2 05/27/17 22:25 97.8 78 20 122/70 100 Physical Exam Const: [] Head: Atraumatic Eyes: Normal Conjunctiva ENT: Normal External Ears, Nose and Mouth. Neck: Full range of motion..~ No meningismus. Resp: Clear to auscultation bilaterally Cardio: Regular rate and rhythm, no murmurs Abd: Soft, non tender, non distended. Normal bowel sounds Skin: No petechiae or rashes Back: No midline or flank tenderness Ext: No cyanosis, or edema Neur: Awake and alert Psych: Normal Mood and Affect Results 24 hrs Current Medications Medications (Trade) Dose Ordered Sig/Yamile Route PRN Reason Start Time Stop Time Status Last Admin Dose Admin Lorazepam (Ativan) 1 mg ONCE STAT IM 05/27/17 22:46 05/27/17 22:47 DC Procedures/MDM This is a 21-year-old female presenting to the emergency department complaining of an anxiety attack. Patient has been having anxiety attacks in the past and was placed on Prozac however she has not taken her medication the past 2 weeks. Patient is in the process of changing her primary care physician. Patient has stable vital signs and stable to be discharged home to follow-up with her primary care physician. In the ED patient was given Ativan. I have discussed with her that I will not give her any medications for home until she is able to follow-up with her primary care physician Departure Diagnosis: Primary Impression: Anxiety Condition: Stable Patient Instructions: Your Body's Response to Anxiety Referrals: TARA BRUCE (PCP) DANNI ELIZABETH PA-C May 27, 2017 22:55
== END 2017-05-27 23:31 | disposition home or self-care (01) ==
LOC: FTE 22:12
DX: F41.9 Anxiety disorder, unspecified (principal)
CPT/HCPCS: 96372; J2060; Z7502

== ENCOUNTER 2017-07-14 06:23 | Emergency (ER) | payer OTHER ==
[~2017-07-14] VITALS: Ht 147.3 cm; Wt 52.1 kg
[2017-07-14 06:31] VITALS: Ht 147.3 cm; Wt 52.1 kg
[2017-07-14] MEDS ORDERED: ONDANSETRON (ODT) 4 MG TAB ODT STA (06:51)
[2017-07-14] MEDS ORDERED: LORAZEPAM 1 MG TAB PO ONE (07:00)
--- NOTE | 2017-07-14 07:15 | ERD ---
ER Documentation Chief Complaint Chief Complaint Pt with dizzyness, nausea and intermittent sharp AP x2 day. HPI This is a 21-year-old female who presents the emergency department stating I think I am having an anxiety attack". 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 States that she was at work" I felt like a bucket of hot water was being poured on top of me". States that she has had anxiety and panic attacks in the past and this feels similar. States that she has nausea but no vomiting. States that she has a history of constipation. States that she came here to the emergency department because "her boss made her come so that she could get paid for work".Denies any abdominal pain, headache, blurred vision chest pain , palpitations or shortness of breath. Denies any fevers or chills ROS All systems reviewed and are negative except as per history of present illness. Medications Home Meds Active Scripts Lorazepam* (Ativan*) 0.5 Mg Tablet, 0.5 MG PO Q8, #10 TAB Prov:NIKOLE AMAYA PA-C 07/14/17 Ondansetron Hcl* (Zofran*) 4 Mg Tablet, 4 MG PO Q6H for NAUSEA AND/OR VOMITING, #30 TAB Prov:NIKOLE AMAYA PA-C 07/14/17 Phenazopyridine Hcl* (Pyridium*) 200 Mg Tab, 200 MG PO TID Y for URINARY PAIN, # 6 TAB Prov:BONITA MOHR PA-C 04/26/17 Cephalexin* (Keflex*) 500 Mg Capsule, 500 MG PO BID for 7 Days, CAP Prov:BONITA MOHR PA-C 04/26/17 Ondansetron (Zofran Odt) 4 Mg Tab.rapdis, 4 MG PO Q6, #10 Prov:APRYL JAMES DO 03/30/17 Naproxen* (Naprosyn*) 500 Mg Tablet, 500 MG PO BID Y for PAIN AND/OR INFLAMMATION, #30 TAB Prov:APRYL JAMES DO 03/30/17 Ciprofloxacin Hcl* (Ciprofloxacin Hcl*) 500 Mg Tablet, 500 MG PO BID for 3 Days , TAB Prov:APRYL JAMES DO 03/30/17 Miconazole Nitrate* (Miconazole-7*) 45 Gm Cream.appl, 1 APPLIC VAGINAL HS, #7 TUB Prov:PRISCILLA POLLOCK PA-C 02/13/17 Fluconazole* (Diflucan*) 150 Mg Tablet, 150 MG PO ONCE, #2 TAB Prov:PRISCILLA POLLOCK PA-C 02/13/17 Cetirizine Hcl* (Zyrtec*) 10 Mg Capsule, 10 MG PO DAILY, #15 TAB.CHEW Prov:PRISCILLA POLLOCK PA-C 02/13/17 Amoxicillin/Potassium Clav (Amox-Clav 875-125 mg Tablet) 875-125 mg Tab, 1 TAB PO BID for 7 Days, #14 TAB Prov:PRISCILLA POLLOCK PA-C 02/13/17 Polyethylene Glycol* (Miralax*) 17 Gm Powd.pack, 17 GM PO DAILY, #7 Prov:GARTH STAPLETON PA-C 12/21/16 Metoclopramide* (Reglan*) 10 Mg Tablet, 10 MG PO Q6 Y for NAUSEA AND/OR VOMITING , #30 TAB Prov:RADHA PATEL 11/08/15 Metoclopramide* (Reglan*) 10 Mg Tablet, 10 MG PO Q6 Y for NAUSEA AND/OR VOMITING , #10 TAB Prov:RADHA PATEL 10/19/15 Famotidine* (Pepcid*) 20 Mg Tablet, 20 MG PO BID for 15 Days, TAB Prov:RADHA PATEL 10/19/15 Ondansetron Hcl* (Zofran* ODT) 4 mg -ODT Tab.disper, 4 MG PO Q8 Y for NAUSEA AND OR VOMITING, #30 TAB Prov:BERTRAND MAY NP 10/17/15 Oxycodone Hcl-Acetaminophen* (Percocet*) 10-325 Mg Tablet, 1 TAB PO Q4H Y for PAIN AND OR ELEVATED TEMP, #20 TAB Prov:BERTRAND MAY NP 10/17/15 Hydrocodone Bit-Acetaminophen* ([place]*) 5-325 Mg Tab, 1 TAB PO Q6 Y for PAIN, # 7 TAB Prov:CORA MÁRQUEZ DO 10/07/15 Ondansetron Hcl* (Zofran* ODT) 4 mg -ODT Tab.disper, 4 MG PO Q6 Y for NAUSEA AND /OR VOMITING, #10 TAB Prov:WILLICORA DO 10/07/15 Lorazepam* (Lorazepam*) 1 Mg Tablet, 1 MG PO Q6, #12 TAB Prov:VALORIE REDMOND MD 06/23/15 Ondansetron Hcl* (Zofran* ODT) 8 mg -ODT Tab.disper, 8 MG PO Q6 Y for NAUSEA AND /OR VOMITING, #12 TAB Prov:VALORIE REDMOND MD 06/23/15 Lansoprazole* (Prevacid* Soltab) 15 Mg Tab, 15 MG PO DAILY for 28 Days, TAB Prov:YOHAN NEGRON MD 06/02/15 Metoclopramide Hcl* (Metoclopramide Hcl* Soln) 5 Mg/5 Ml Solution, 5 MG PO Q6H Y for NAUSEA AND OR VOMITING for 10 Days, ML Prov:YOHAN NEGRON MD 06/02/15 Hydrocodone Bit-Acetaminophen* (Lortab* Liq) 7.5 Mg-500 Mg/15 Ml Solution, 5 ML PO Q4H Y for PAIN for 10 Days, ML Prov:YOHAN NEGRON MD 06/02/15 Acetaminophen-Codeine* (Tylenol-Codeine* Liq) [id number] Elix, 7.5 ML PO Q6H Y for PAIN, #4 OZ Prov:MATHEW NAQVI MD 06/02/15 Allergies Allergies: Coded Allergies: shrimp (Verified Allergy, Unknown, swelling to mouth and throat, 05/27/17) PMhx/Soc Medical and Surgical Hx: pt denies Medical Hx History of Surgery: Yes (Hiatal hernia repair, Ovarian cysts removal) Anesthesia Reaction: No Hx Neurological Disorder: No Hx Respiratory Disorders: No Hx Cardiac Disorders: No Hx Psychiatric Problems: No Hx Miscellaneous Medical Probl: Yes (anxiety, depression) Hx Alcohol Use: No Hx Substance Use: No Hx Tobacco Use: No Smoking Status: Never smoker Physical Exam Vitals Vital Signs Date Time Temp Pulse Resp B/P Pulse Ox O2 Delivery O2 Flow Rate FiO2 07/14/17 06:31 98.3 57 18 126/81 97 Physical Exam Const: NAD Head: Atraumatic Eyes: Normal Conjunctiva ENT: Normal External Ears, Nose and Mouth. Neck: Full range of motion..~ No meningismus. Resp: Clear to auscultation bilaterally Cardio: Regular rate and rhythm, no murmurs Abd: Soft, non tender, non distended. Normal bowel sounds Skin: No petechiae or rashes Back: No midline or flank tenderness Ext: No cyanosis, or edema Neur: Awake and alert Psych: Normal Mood and Affect Results 24 hrs Current Medications Medications (Trade) Dose Ordered Sig/Yamile Route PRN Reason Start Time Stop Time Status Last Admin Dose Admin Lorazepam (Ativan) 1 mg ONCE ONCE PO 07/14/17 07:00 07/14/17 07:01 DC 07/14/17 06:57 Ondansetron HCl (Zofran Odt) 4 mg ONCE STAT ODT 07/14/17 06:51 07/14/17 06:53 DC 07/14/17 06:57 Procedures/MDM This is a 21-year-old female who presents emergency department today stating "I think I am having an anxiety attack". Patient endorses having had anxiety in the past. She stated that this feels similar to all of her other anxiety attacks in the past. States that she was only here in the emergency room because her boss made her come. Patient states "my mom moved back to [place], my sister still $14,000 from me and I live on my own". patient is afebrile and otherwise well-appearing. Her vital signs are stable. She has some nausea but no abdominal pain or vomiting. She is alert and oriented and conversing well and is not altered. I do not feel the patient requires further workup or imaging at this time. Patient was given p.o. Ativan and Zofran here in the emergency department and she reported feeling better. She was given a prescription for Zofran and a few tablets of a low-dose of Ativan. She was instructed to take them only as needed. Patient was given a work note for a couple of days. She was instructed to follow-up with her clinic [facility] for referral to counseling services. I have explained to the patient the importance of doing this. Patient understood and agreed with the plan. At this time the patient is stable for discharge and outpatient management. Patient should follow up with their PCP in the next 1-2 days. They may return to the emergency department sooner for any persistent or worsening of symptoms. Patient understood and agreed with the plan.. Departure Diagnosis: Primary Impression: Panic attack Condition: NIKOLE Lisa PA-C Jul 14, 2017 07:15
[2017-07-14] MEDS ORDERED: ONDA4TAB8 PO (07:41)
[2017-07-14] MEDS ORDERED: LORA-441 PO (07:41)
[2017-07-14 07:52] VITALS: BP 118/70; PULSE 74; RESP 18; TEMP 98.3
== END 2017-07-14 07:52 | disposition home or self-care (01) ==
LOC: FTE 06:23
DX: F41.0 Panic disorder [episodic paroxysmal anxiety] (principal)
CPT/HCPCS: Z7502; Z7610; 99284

== ENCOUNTER 2017-09-04 20:02 | Emergency (ER) | END 2017-09-04 22:40 | disposition left against medical advice (07) ==

== ENCOUNTER 2017-12-25 13:18 | Emergency (ER) | END 2017-12-25 17:38 | disposition home or self-care (01) ==

== ENCOUNTER 2018-03-03 15:28 | Emergency (ER) | END 2018-03-03 18:00 | disposition home or self-care (01) ==

== ENCOUNTER 2018-03-10 16:46 | Emergency (ER) | END 2018-03-10 21:09 | disposition home or self-care (01) ==